=== PATIENT | female | born 1940 | race Caucasian/White ===

== ENCOUNTER 2016-10-16 07:45 | Inpatient (IN) | payer MEDICARE ==
[2016-10-16] VITALS (12 sets, daily range): BP systolic 117–129; BP diastolic 54–65; PULSE 63–91; RESP 12–17; O2SAT 93–97
[~2016-10-16] VITALS: Ht 162.6 cm; Wt 49.3 kg
[2016-10-16] MEDS: Lactated Ringer's 1,000 ML IV SCH ×4 (05:00→17:30)
[2016-10-16] MEDS: Vancomycin Inj 750 MG in 0.9% Sodium Chloride 250 ML IV SCH ×2 (06:00→08:30)
[~2016-10-16 07:45] MED LIST: ALBU8.5H2 INHALATION; Bupivacaine Liposome 1.3% 20 mL Inj INFILTRATE SCH; CeFAZolin Inj 2 GM in IV Premix 1 EACH IV SCH; ESTR1TAB24 PO; LATA2.5D6 AFFECT_EYE; LISI-571 PO; PRAM0.122 PO; SALM50DI IH; TRAZ-115 PO; Vancomycin Inj 1,000 MG in IV Premix 1 EACH IV SCH
--- NOTE | 2016-10-16 10:17 | PCM.HPANE ---
Patient Data Surgeon Admitting Provider: Attending Provider:Kavon Vazquez MD Primary Care Physician:Gabbie Quiñones DO Other Provider:Monica Morales Anesthesia Reason for Visit Right Knee Arthritis Ht/WT & BMI Height (Feet): 5 Height (Inches): 4.00 Weight (Kilograms): 49.300 Body Mass Index 18.00 Allergies Coded Allergies: Penicillins (Verified Allergy, Severe, RASH, 10/14/16) Past Anesthesia History Anesthesia History: Denies:: Anesthesia Reactions, Malignant Hyperthermia Diabetes History Hx Diabetes?: No MRSA MRSA: No Medications Hypertension Medication: Yes (LISINOPRIL) Home Meds Incl Beta Radha: No Reported Medications Latanoprost 2.5 Ml Drops1 Gtt AFFECT_EYE HS #1 BOTTLE BOTH EYES 10/14/16 Trazodone 50 Mg Ihwfmg74 Mg PO HS Ref 0 10/14/16 Salmeterol Xinafoate (Serevent Diskus)50 Mcg/Puff Inhaler1 Puff IH BID 10/14/16 Albuterol HFA (Proair HFA)8.5 Gm Hfa.aer.ad2 Puffs INHALATION Q4H PRN PRN #1 INHALER 10/14/16 Pramipexole Dihydrochloride (Mirapex)0.125 Mg Tablet0.125 Mg PO DAILY 10/14/16 Lisinopril 5 Mg Tablet5 Mg PO DAILY #30 TABLET Ref 0 10/14/16 Estradiol 1 Mg Tablet1 Mg PO DAILY Ref 0 10/14/16 History History of ENT Problems?: Yes HEENT History: Positive for:: Glaucoma Hx of Heart Problems?: Yes Cardiovascular History: Positive for:: Hypertension Denies:: Heart Murmur (STRESS ECHO 02/2015 EF 60-65%) Valvular Heart Disease Hx of Respiratory Problem?: Yes Respiratory History: Positive for:: Asthma Use of Inhalers / NEBS Denies:: Use of C-PAP Machine Hx Neurologic Problems?: Yes Hx of GI Problems?: No Hx of Problems?: No Female Hx: Denies:: Currently Skin History: Denies:: History Skin Disorders? Pressure Ulcers Hx Musculoskeletal Problems?: Yes Musculoskeletal History: Positive for:: Degenerative Joint Osteoarthritis (RT KNEE=CURRENT PROBLEM) Hx of Psycho/Social Problems?: No Hx Surgeries?: Yes (HYST) Hx Any Other Health Problems?: Yes Other History: Denies:: Cancer Endocrine Disease Hospitalization Thyroid Disease Hx Diabetes: No Have You Smoked inLast 12 mo: No Stop/Bang S-Snoring: Do You Snore Loudly: No T-Tired: feel tired, fatigued: Yes O-Obsered: Observed not breath: No P-Blood Pressure: treated: Yes B- Body Mass Index > 35 kg/m2: No A- Age over 50: Yes N- Neck Large Circumference: No G- Gender Male: No JULIO CESAR Total Score: 3 Risk Assessment Category Category 1A: Patient has history of documented sleep apnea, and HAS NOT received any narcotic, sedative or anesthesia administration during this stay. Category 1B: Patient has history of documented sleep apnea, and HAS received any narcotic , sedative or anesthesia administration during this stay Category 2: Patient has SUSPECTED Obstructive Sleep Apnea, and HAS received any narcotic , sedative or anesthesia administration during this stay. Category 3: Patient has SUSPECTED Obstructive Sleep Apnea and HAS NOT received narcotic, sedative or anesthesia administration during this stay. Category 4: Outpatient in Procedural Areas with known sleep apnea or who screen positive for High Risk via the STOP/BANG questionnaire. Exam Exam Vital Signs Vital Signs Date Time Temp Pulse Resp B/P Pulse Ox O2 Delivery O2 Flow Rate FiO2 10/16/16 08:02 35.8 63 12 117/58 95 Room Air General Appearance: Alert, Oriented X3, Cooperative, No Acute Distress HEENT/AIRWAY: MP 2 Lungs: Clear to Auscultation Heart: Exam Unremarkable Meds/Labs/Diagnostics Admission Meds Current Medications Lactated Ringer's 1,000 ml @ 120 mls/hr Q8H20M IV Last administered on 07:56; Start 10/16/16 at 05:00; Stop 10/16/16 at 13:19 Vancomycin HCl/ Sodium Chloride (Vancocin Inj/ Normal Saline) 250 ml @ 166.667 mls/hr PREOP IV Last administered on 10/16/16 08:30; Start 10/16/16 at 06:00; Stop 10/16/16 at 19:00 Plan Impression Patient chart reviewed, patient interviewed and anesthestic plan with risks, benefits, and alternatives discussed, and informed consent obtained. NPO Status: 10/16/16 [facility] 0545 ASA Physical Status: ASA2 Mod Systemic Disease Anesthetic Plan: GA, Regional Block (If TKA) Bene/Risks/Altern/Consents: Yes HP Complete Prior to Induction: Yes Kaden Uribe MD Oct 16, 2016 08:41
[2016-10-16] MEDS ORDERED: Lactated Ringer's 1,000 ML IV SCH (11:29)
[2016-10-16] MEDS ORDERED: Lactated Ringer's 500 ML IV PRN (11:29)
[2016-10-16] MEDS ORDERED: fentaNYL-PF 50 mCg/mL 2 mL Inj IVPUSH PRN (11:30)
[2016-10-16] MEDS: Tranexamic Acid 100 mg/mL 10 mL Inj ONE ×2 (11:30→12:30)
[2016-10-16] MEDS ORDERED: Dexamethasone 4 mg/mL Inj IVPUSH PRN (11:30)
[2016-10-16] MEDS ORDERED: HYDROmorphone 1 mg/mL Inj IVPUSH PRN (11:30)
[2016-10-16] MEDS ORDERED: Phenylephrine 10,000 mCg/mL Inj IVPUSH PRN (11:30)
[2016-10-16] MEDS ORDERED: MetoCLOpramide 5 mg/mL 2 mL Inj IVPUSH PRN ×2 (11:30→17:10)
[2016-10-16] MEDS ORDERED: EPHEDrine Sulfate 50 mg/mL Inj IVPUSH PRN (11:30)
[2016-10-16] MEDS ORDERED: Ondansetron 2 mg/mL 2 mL Inj IVPUSH PRN ×2 (11:30→17:10)
[2016-10-16] MEDS ORDERED: Bupivacaine-MPF 0.25%/EPI 30 mL Inj ARTICULAR ONE (11:49)
[2016-10-16] MEDS ORDERED: Gentamicin 40 mg/mL 2 mL Inj IRRIGATION ONE ×2 (11:50→11:57)
[2016-10-16] MEDS ORDERED: Lactated Ringer's 1,000 ML IV ONE (12:36)
--- NOTE | 2016-10-16 14:04 | PCM.ANEP2 ---
Post Anesthesia Evaluation ASA/CMS Post Anesthesia VS in Patient's Normal Range?: Yes Resp Stable; Airway Patent?: Yes CV Function & Hydration Stable: Yes Mental Status Recovered?: Yes Pain control Satisfactory?: Yes N/V Control Satisfactory?: Yes Kaden Uribe MD Oct 16, 2016 14:04
--- NOTE | 2016-10-16 14:04 | PCM.ANEP1 ---
Post Anesthesia Phase 1 PACU Phase 1 Assessment Vital Signs Vital Signs Date Time Temp Pulse Resp B/P Pulse Ox O2 Delivery O2 Flow Rate FiO2 10/16/16 13:30 36.1 86 15 118/57 94 Room Air 10/16/16 13:25 87 16 125/56 95 Room Air 10/16/16 13:20 88 16 126/58 95 Room Air 10/16/16 13:15 88 13 127/62 96 Room Air 10/16/16 13:10 91 15 127/59 97 Room Air 10/16/16 13:07 36.1 89 14 122/59 97 Room Air 10/16/16 08:02 35.8 63 12 117/58 95 Room Air Anesthetic Administered: GA Level of Alertness: Sleepy, easy to arouse SIMS's with Equal Strength: Yes Pain: No Nausea or Vomiting: No Oxygen Delivery: Room Air Lungs: Clear to Auscultation Dermatome Level: Full Sensation Summary FNB in PACU tolerated well Kaden Uribe MD Oct 16, 2016 14:04
[2016-10-16] MEDS ORDERED: Ondansetron 2 mg/mL 2 mL Inj ONE (14:19)
[2016-10-16] MEDS ORDERED: fentaNYL-PF 50 mCg/mL 2 mL Inj ONE (14:19)
[2016-10-16] MEDS ORDERED: EPHEDrine/NS 5 mg/mL 5 mL Syringe ONE (14:19)
[2016-10-16] MEDS ORDERED: Dexamethasone 4 mg/mL Inj ONE (14:19)
[2016-10-16] MEDS ORDERED: Propofol 10,000 mCg/mL 20 mL Inj ONE (14:19)
--- NOTE | 2016-10-16 14:23 | DRSVH ---
PROCEDURE: X-RAY RIGHT KNEE, ONE OR TWO VIEWS ([id number]) INDICATIONS: CHECK ALIGNMENT TECHNIQUE: 2 views of the knee were acquired. COMPARISON: None. FINDINGS: Bones: There is right knee arthroplasty with prosthesis in anatomic alignment. No suspicious bony le sions. Soft tissues: Postsurgical changes around R. noted including a surgical drain. IMPRESSION: Expected postsurgical changes for the total knee arthroplasty. Dictated by: Carmen Longo M.D. on 10/16/2016 at 14:21 Approved by: Carmen Longo M.D. on 10/16/2016 at 14:21
--- NOTE | 2016-10-16 15:01 | OP ---
[address] [address] OPERATIVE REPORT PATIENT: KAMALA COOK : 1940 MR#: [id number] ADMIT: 10/16/2016 JOB ID: [id number] DATE OF SURGERY: 10/16/2016 PREOPERATIVE DIAGNOSIS(ES): Advanced medial compartment osteoarthritis of the knee. POSTOPERATIVE DIAGNOSIS(ES): Bicompartment arthritic changes. PROCEDURE: Total knee replacement. SURGEON: Kavon Vazquez MD PLUG SORTER: Wyatt Sanchez (daycare assistant required due to the major complexity of the operation). INDICATIONS: This woman has had persistent disability unresponsive to conservative treatment. She elects for a knee arthroplasty. She had a preference for partial knee replacement and we performed a diagnostic arthroscopy to assess the lateral side which had a complex meniscal tear and moderate degenerative changes prompting the decision to proceed with a total knee replacement. DESCRIPTION OF PROCEDURE: The knee was prepped and draped in the usual sterile fashion. A diagnostic arthroscopy carried out through an anteromedial portal with the above-mentioned findings. The decision was made to proceed with a total knee replacement. The arthroscope was removed from the knee. Advanced arthritis had been encountered on the medial side. Wounds were irrigated with sterile irrigant. An anteromedial approach was made to the knee. The patella was subluxed laterally, cut transversely, sized to a 32 and the patellar protection plate was utilized. Drill hole was placed in the distal femur. A 5 degree valgus distal femoral cut was made. The femur was sized to a C femoral block fixed in appropriate position. Rotation and chamfer cuts were made. Trial was placed and lug holes were drilled. A 6 was chosen. The tibia was cut with the extramedullary tool and the bone fragments were removed. This was sized to a D chamfer cutting guide. All meniscal tissue and osteophytes removed from the knee. The PCL had been preserved. Trial reductions performed and a 10 mm polyethylene produced excellent tracking, soft tissue tension with excellent patellar tracking. Pressurized lavage was followed by pressurized cementation components. Excess cement was removed during the curing process and the final construct was assembled. Deep Hemovac drain was left. Deep closure with number #2 Quill deep followed by 2-0 Vicryl, 3-0, and a 4-0 intracuticular stitch. The patient tolerated the procedure well. There were no complications.
--- NOTE | 2016-10-16 15:21 | NUR ---
ADMIT Patient arrived to room 1005 on hospital bed. Alert and oriented, answering questions appropriately. Rates pain to R knee 6/10. Ice pack in place with ventura wrap dressing. Hemavac to R knee clamped, due to be unclamped at 1800. Able to wiggle toes and sensation present to R foot. R femoral block done in PACU. No garcia in place. Gave patient hot tea and ice water. No complaints of nausea. Iv fluids running. Will continue to monitor.
[2016-10-16] MEDS ORDERED: HYDROcodone-APAP 5-325 mg Tablet PO PRN (17:05)
[2016-10-16] MEDS ORDERED: hydrOXYzine Inj 25 MG/1 mL SDV IM PRN (17:15)
[2016-10-16] MEDS ORDERED: hydrOXYzine Pamoate 25 mg Capsule PO PRN (17:15)
[2016-10-16] MEDS ORDERED: Magnesium Hydroxide 10 mL Oral Concentration PO PRN (17:15)
[2016-10-16] MEDS ORDERED: Sodium Biphos-Phos 133 mL Enema RECTAL PRN (17:20)
[2016-10-16] MEDS: Ketorolac 15 mg/mL Inj IVPUSH SCH ×2 (17:39→23:15)
[2016-10-16] MEDS: CeFAZolin Inj 2 GM in IV Premix 1 EACH IV SCH (19:30)
[2016-10-16] MEDS ORDERED: Vancomycin Inj 750 MG in 0.9% Sodium Chloride 250 ML IV ONE (20:30)
[2016-10-17 00:10] VITALS: BP 118/62; PULSE 81; RESP 17; O2SAT 95
[2016-10-17] MEDS: Lactated Ringer's 1,000 ML IV SCH (01:01)
[2016-10-17] MEDS: CeFAZolin Inj 2 GM in IV Premix 1 EACH IV SCH (04:08)
--- NOTE | 2016-10-17 05:08 | NUR ---
Activity Patient up to bed side commode with 2 person max assist. Noted reluctance to request assistance, patient stated that her dressing had gotten "Bunched up and she did not want to bother us." This RN encouraged her to use call light, but also increased intentional rounding. Patient denies CP, SOB, and abdominal discomfort at this time.
[2016-10-17] MEDS: Ketorolac 15 mg/mL Inj IVPUSH SCH (05:37)
[2016-10-17 05:43] LABS: BASOPHILS % (AUTO) 0 % (0-3); EOSINOPHILS % (AUTO) 0 % (0-5); MONOCYTES % (AUTO) 8.8 % (4-12); Mean Corpuscular Hemoglobin 30.5 pg (27.0-35.0); NEUTROPHILS % (AUTO) 78.7 % (40-74); Platelet Count 115 bil/L (150-400)
[2016-10-17 05:55] VITALS: BP 142/61; PULSE 64; RESP 17; O2SAT 97
--- NOTE | 2016-10-17 07:09 | PCM.PNORTH ---
Subjective Date of Service: Oct 17, 2016 Visit Information: Reason for Visit Right Knee Arthritis Surgery/Surgery Date Post-Op Day # Date of Admission: Oct 16, 2016 at 14:18 Hospital Day # Subjective Found patient awake and alert this morning and sitting up in bed. No complaints pain at this time. Discussed participation with formal physical therapy and planned discharge on or before postop day #3. Patient states that she does have help at home and that she has one step to enter her home and 16 steps inside her home to get to her bedroom. She also relates that she can stay on the ground floor and initially and this is what she plans to do. Postop General: No Complaints, No Shortness of Breath, No Chest Pain Pain Management: PO, IV Push Objective Exam Objective Orientation: Alert and oriented 3 and pleasant. Some difficulty in focusing during discussion. Dressing: Interoperative dressing is clean dry and intact. Wound: Wound is not observed today. Compartments: Calf and thigh are soft and nontender. Mobility/sensation: Toe wiggle and sensation are intact at right lower extremity distally. KANNAN hose: None Reese: None Drain: Drain is in place and working. 180 mL output since surgery Gait: No gait as of this time with PT. Patient is using B SC Vital Signs and I/O Vital Sign - Last Date Time Temp Pulse Resp B/P Pulse Ox O2 Delivery O2 Flow Rate FiO2 10/17/16 05:55 36.4 64 17 142/61 97 Room Air Intake and Output 10/16/16 10/16/16 10/17/16 Cumulative From/Thru 15:00 23:00 07:00 10/14/16 08:53 - 10/17/16 05:55 Intake Total 1700 ml 268 ml 1156 ml 3124 ml Output Total 1780 ml 1780 ml Balance 1700 ml 268 ml -624 ml 1344 ml Intake Oral 1156 ml 1156 ml IV Total 1700 ml 268 ml 1968 ml Output Urine Total 1600 ml 1600 ml Drainage Total 180 ml 180 ml Lab & Micro Results Laboratory Tests Test 10/17/16 05:15 White Blood Count 9.5th/mm3 (3.8-10.1) Red Blood Count 4.17mil/mm3 (3.90-5.20) Hemoglobin 12.7g/dL (12.0-15.6) Hematocrit 37.1% (35.0-46.0) Mean Corpuscular Volume 89.0fL (81-100) Mean Corpuscular Hemoglobin 30.5pg (27.0-35.0) Mean Corpuscular Hemoglobin Concent 34.2% (32.0-37.0) Red Cell Distribution Width 12.4% (12.3-15.4) Platelet Count 115bil/L (150-400) Neutrophils (%) (Auto) 78.7% (40-74) Lymphocytes (%) (Auto) 12.4% (14-46) Monocytes (%) (Auto) 8.8% (4-12) Eosinophils (%) (Auto) 0% (0-5) Basophils (%) (Auto) 0% (0-3) Result Diagram: 10/17/16 0515 General Appearance: Alert, Oriented X3, Cooperative, No Acute Distress Extremities: No Compartment Syndrom Noted, Thigh & Calf Soft/Nontender Postop Sensory Motor: Distal Motor Intact, Movement in Toes, Distal Sensation Intact SURGICAL WOUND : Drain Location Body Site: Knee Wound Drainage Type: Hemovac Activity: Activity per PT, Ambulate with PT (weightbearing as tolerated on the right lower extremity using a front-wheeled walker.) Catheters: None Assessment & Plan Impression Patient is a 76-year-old female who is alert and pleasant and is undergone a right total knee arthroplasty on 10/16/2016. We have discussed participation of formal therapy and I have encouraged this. We have discussed discharged tomorrow for postop day #3. Patient has attended the preoperative joint class and does have help at home. Problems: Plan Postop day # 1 from right total knee arthroplasty performed on 10/16/[address] Kavon Vazquez. Weight bearing status: Weightbearing as tolerated on the right lower extremity Mobility aid: Front-wheeled walker Immobilization: None Precautions: Standard postoperative precautions for mobility, gait and safety. Physical therapy: Continue formal physical therapy for mobility, gait and safety. Patient states she has one step to enter home and 16 steps to reach the main floor. She says there is a bedroom on the entry floor and she plans to stay in that location until she is safe to reach her bedroom. Patient has arranged outpatient physical therapy to begin postdischarge as soon as possible. Pain control: Maintain pain control with by mouth pain medications starting today on postop day 1. Use Percocet 5/325 and Vistaril. Supplement with Roxicodone as needed initially. DVT prophylaxis: ASA 81 mg EC by mouth twice a day 6 weeks postop for DVT prophylaxis Wound care: Keep surgical incision clean dry and covered until seen in office in 2 weeks. Incision may be showered after postop day #4 if wound has been dry for 24 hours. Reese: Absent Dressing: Intraoperative dressing is clean dry and intact. Interoperative dressing will be changed postoperative dressing on postoperative day #2 Drain: In place and working. 180 mL output since surgery as of 10/17/2016 at 0630 hrs. KANNAN hose: None. Bilateral thigh-high KANNAN hose will be ordered today. Left should be applied today and right may be applied on postop day 2 after dressing change. Nursing communication: Nursing please measure for an split bilateral thigh-high KANNAN hose with left applied today and right applied on postop day #2 after dressing change. Nursing please discontinue intraoperative drain at 24 hours postop around noon today on postop day #1. 2-week follow-up: Follow-up in 2 weeks at [facility] orthopedic clinic on prearranged appointment with mid-level provider for wound check and suture removal. 6-week follow-up: Follow-up in 2 weeks at [facility] orthopedic clinic on prearranged appointment with Dr. Kavon Vazquez with 2 view right knee x- rays on arrival . Plan: Anticipate the patient will participate well with formal physical therapy and we will discharge on a referral postop day #3 to home with family as caregivers. Discharge instructions: Weightbearing as tolerated on the right lower extremity using front-wheeled walker. Keep incision clean dry and covered until seen in office in 2 weeks. Wound may be showered after postop day #4 if it has been dry for 24 hours. Work on range of motion at the knee. Discharge plan: Anticipated discharge on or before postop day #3 to home with family as caregivers. VTE Prophylaxis: SCDs (SCD and left lower extremity), KANNAN Hose (bilateral thigh -high KANNNA hose), Other (ASA 81 mg EC by mouth twice a day 6 weeks postop for DVT prophylaxis.) Lenin Devlin PA-C Oct 17, 2016 07:09
[2016-10-17 09:00] VITALS: BP 120/65; PULSE 66; RESP 16; O2SAT 96
[2016-10-17 11:12] VITALS: BP 109/55; PULSE 73; RESP 16; O2SAT 98
[2016-10-17] MEDS: diphenhydrAMINE 25 mg Capsule PO PRN ×2 (12:19→19:55)
[2016-10-17] MEDS: oxyCODONE-Acetamin 5-325 mg Tablet PO PRN ×2 (12:19→19:55)
[2016-10-17 16:05] VITALS: BP 110/55; PULSE 69; RESP 16; O2SAT 98
--- NOTE | 2016-10-17 16:06 | NUR ---
ACTIVITY Patient got up to use BSC with minimal assistance using FWW. Thigh high KANNAN hose applied to left leg. Pain has been well controlled with 1 tab norco prior to therapy sessions. Even 3.5 hrs since pain med administration patient still states pain is a 1-2/10, which is tolerable for her. Encouraged patient to use call light to let us know when pain increases at all. care continues
[2016-10-17 20:08] VITALS: BP 131/64; PULSE 87; RESP 20; O2SAT 94
[2016-10-18] VITALS: BP 134/61; PULSE 74; RESP 20; O2SAT 96
--- NOTE | 2016-10-18 01:04 | NUR ---
Hemovac Per MANAGER PROJECT, patient turned to sit up on side of bed and hemovac became dislodge at collection container site. Susannah, RN assisted with connecting new hemovac container . VSS. Call light within reach. Care continues.
[2016-10-18] MEDS: Lactated Ringer's 1,000 ML IV SCH ×2 (01:11→19:00)
[2016-10-18 05:20] VITALS: BP 144/67; PULSE 79; RESP 20; O2SAT 95
[2016-10-18] MEDS: diphenhydrAMINE 25 mg Capsule PO PRN (05:38)
[2016-10-18] MEDS: oxyCODONE-Acetamin 5-325 mg Tablet PO PRN ×5 (05:38→23:02)
[2016-10-18 09:50] VITALS: BP 144/68; PULSE 68; RESP 18; O2SAT 96
--- NOTE | 2016-10-18 10:40 | PROG NOTE ---
[address] [address] PROGRESS NOTE PATIENT: KAMALA COOK : 1940 MR#: [id number] ADMIT: 10/16/2016 JOB ID: [id number] DATE: 10/18/2016 HISTORY AND HOSPITAL COURSE: The patient is postoperative day number two. She is having more pain and more difficulty getting around today. I suspect that is because the block has worn off. Hemovac came apart last evening. It needs to be discontinued today. Will do a dressing change today. Her leg looks excellent, very little swelling, and she has a normal distal neurovascular exam. IMPRESSION: Satisfactory progress. Patient will likely benefit from an additional day in the hospital. Plan on probable discharge tomorrow, unless she improved significantly and excels in physical therapy this afternoon.
--- NOTE | 2016-10-18 15:38 | NUR ---
Social work note Initial assessment Kayleigh Petit is a 76 yr old admitted for RT knee replacement. EMR reviewed: Pt lives in [place] with her significant other/DPOA Quirino Acosta. Pt has Medicare and AARP insurance. No LTC insurance, no VA benefits. Her PCP is Dr Quiñones. Darrionmit score is 1. See attached CM initial assessment. FAMILY ASSISTANT met with pt - Introduced D/C planning and explained SW role. Pt is independent at baseline. She has a walker to use while she recovers from surgery and states that she has friends/family to provide assist. She denies any other needs. Plans to d/c home tomorrow. Plan: Home with Helene tomorrow in [facility]. Outpt PT already established for rehab. RUI Brown Addendum: 10/18/16 at 1541 by HESHAM CA SS Amended: Links added.
--- NOTE | 2016-10-18 19:23 | NUR ---
Activity/pain Pt up 1 assist to bathroom, walked in yepez with PT Pain well controlled with PO Percocet. Hemovac d/c'd and dressing changed to island dressing.
[2016-10-18 21:16] VITALS: BP 134/64; PULSE 75; RESP 18; O2SAT 97
--- NOTE | 2016-10-18 23:08 | NUR ---
Pain/Activity Patient complaining of pain 4-5/10 on pain scale. Percocet 1 tab administered. Patient experiencing some insomnia because of pain. Ice bag put on right knee. Patient ambulating well with fww to br. VSS. Call light within reach. Care continues.
[2016-10-19 05:17] VITALS: BP 142/72; PULSE 72; RESP 20; O2SAT 97
[2016-10-19] MEDS: oxyCODONE-Acetamin 5-325 mg Tablet PO PRN ×2 (09:20→13:18)
--- NOTE | 2016-10-19 09:33 | PCM.PNORTH ---
Subjective Date of Service: Oct 19, 2016 Visit Information: Reason for Visit Right Knee Arthritis Surgery/Surgery Date right total knee arthroplasty 10/16/2016 Post-Op Day # 3 Date of Admission: Oct 16, 2016 at 14:18 Hospital Day # Subjective Patient did quite well with therapy yesterday and angulated 125 feet. Plans to practice stairs with therapy this morning. She had a little behind with her pain medicine last night. She complains of incisional pain. Her is here this morning is well. She feels that she will be ready for discharge today. Postop General: No Shortness of Breath, No Chest Pain Pain Management: PO Objective Exam Objective Patient is seen ambulating out of the bathroom and then sits on the bed independently with her walker. Her is at bedside. Vital Signs and I/O Vital Sign - Last Date Time Temp Pulse Resp B/P Pulse Ox O2 Delivery O2 Flow Rate FiO2 10/19/16 05:17 36.5 72 20 142/72 97 Room Air Intake and Output 10/18/16 10/18/16 10/19/16 Cumulative From/Thru 14:59 22:59 06:59 10/14/16 08:53 - 10/19/16 06:33 Intake Total 800 ml 513 ml 5975 ml Output Total 450 ml 450 ml 5690 ml Balance 350 ml 63 ml 285 ml Intake Oral 800 ml 513 ml 3639 ml IV Total 2336 ml Output Urine Total 450 ml 450 ml 5250 ml Drainage Total 440 ml # Voids 3 1 4 # Bowel Movements 0 0 Result Diagram: 10/17/16 0515 General Appearance: Alert, Oriented X3, Cooperative, No Acute Distress Extremities: Distal Pulses Palpable, No Compartment Syndrom Noted, Thigh & Calf Soft/Nontender Postop Sensory Motor: Distal Motor Intact, NVI Distally SURGICAL WOUND : Wound Location/Description Right knee: Dressing is clean dry and intact. There is no signs of infection. Thigh-high KANNAN hose in place. A soft and nontender. Dressing & Drainage Status: Intact Activity: Activity per PT, Ambulate with PT (weightbearing as tolerated on the right lower extremity using a front-wheeled walker.) Catheters: None Assessment & Plan Impression Status post right total knee arthroplasty Problems: Plan Weightbearing: Weightbearing as tolerated with walker DVT prophylaxis: aspirin 81 mg twice a day 6 weeks Physical therapy for transfers, progressive ambulation, therapeutic exercise Wound care: Patient may remove dressing tomorrow and shower. Apply new dressing after showering. Wear compression stockings for 1 month on the surgical leg The patient may shower if the wound has no drainage present x 24 hours. Wound may be uncovered to shower. Let soap and water run over the wound, pat dry and apply a new dressing. Discharge plan: Discharge home today. Start outpatient physical therapy later this week Discharge instructions are reviewed with the patient Follow-up plan: In 2 weeks at [facility] with MONTRELL for wound check and at [address] Vazquez with x-rays Pain Management: Percocet, Vistaril VTE Prophylaxis: SCDs, KANNAN Hose, Other (ASA 81 mg twice a day) Resuscitation Status: CPR: Attempt Resuscitation FreerKati Will PA-C Oct 19, 2016 09:33
--- NOTE | 2016-10-19 09:34 | PCM.DIORTH ---
Ortho Discharge Instruction Date of Service: Oct 19, 2016 Dates of Hospitalization Date of Hospital Admission Oct 16, 2016 at 14:18 Providers Admitting Physician: Kavon Vazquez MD Primary Care Physician: Gabbie Quiñones DO Attending Physician: Kavon Vazquez MD Diet Discharge Diet: No restrictions Activity Discharge Activity-General: Balance rest and activity, Elevate & ice extremity , May drive in (one month) Right Lower Extremity: Weight Bearing as tolerated Discharge Assist Device: Front Wheeled Walker Dressing and Incisional Care Discharge Dressing Care: Keep dressing clean, dry & intact Discharge Hygiene: May shower (see instructions below), DO NOT soak incision under water, NO bathtub, hot tub or whirlpool Additional Instructions Discharge Instructions Weightbearing: Weightbearing as tolerated with walker DVT prophylaxis: aspirin 81 mg twice a day 6 weeks Wound care: May remove dressing tomorrow and shower. Apply new dressing after showering. Wear compression stockings for 1 month nonsurgical leg Increase activity a little more each day. Push yourself with bending and straightening the knee. Do not place a pillow under the knee when resting. Placed pillow under the calf or foot to help straighten the knee. Start outpatient physical therapy later this week. The patient may shower if the wound has no drainage present x 24 hours. Wound may be uncovered to shower. Let soap and water run over the wound, pat dry and apply a new dressing. Follow Up Plan Follow Up Plan Follow-up plan: In 2 weeks at [facility] with MONTRELL for wound check and at [address] Vazquez with x-rays Call your provider for: Fever, Chills, Shortness of breath, Vomitting, Drainage at incision, Wound redness Kati Fairchild PA-C Oct 19, 2016 09:34
--- NOTE | 2016-10-19 09:59 | PCM.DC.ORT ---
Discharge Summary Date of Service: Oct 19, 2016 Date of Hospital Admission: Oct 16, 2016 at 14:18 Date of Surgery: Oct 16, 2016 Date of Discharge: Oct 19, 2016 Reason for Hospitalization: Right knee arthritis Procedures Performed: Right total knee arthroplasty Hospital Course: The patient was admitted to the hospital on 10/16/2016 and underwent the above procedure. Antibiotic prophylaxis consisting of Ancef and vancomycin. The surgeon was Dr. Vazquez. A Reese was placed perioperatively. Patient tolerated the procedure well and was transferred to recovery room in stable condition. Reese was discontinued on postop day 1. Patient had physical therapy to work on ambulation and transfers. Weightbearing: as tolerated with walker. Pain was managed with morphine, Percocet, Vistaril and [place]ml[place]. Drain is discontinued on postop day 2. DVT prophylaxis: Aspirin 81 mg twice a day. Patient progressed well with physical therapy was able to ambulate 125 feet and do stairs. On POD-3 she was discharged home with her to assist in her care. Follow-up: at [facility] 2 weeks postop for wound check and at [address] Vazquez with x-ray Diagnosis at Time of Discharge Status post right total knee arthroplasty Problems: Disposition: Discharged home in stable condition Discharge Instructions: Weightbearing: Weightbearing as tolerated with walker DVT prophylaxis: aspirin 81 mg twice a day 6 weeks Wound care: May remove dressing tomorrow and shower. Apply new dressing after showering. Wear compression stockings for 1 month nonsurgical leg Increase activity a little more each day. Push yourself with bending and straightening the knee. Do not place a pillow under the knee when resting. Placed pillow under the calf or foot to help straighten the knee. Start outpatient physical therapy later this week. The patient may shower if the wound has no drainage present x 24 hours. Wound may be uncovered to shower. Let soap and water run over the wound, pat dry and apply a new dressing. Albuterol HFA (Proair HFA) 8.5 Gm Hfa.aer.ad 2 PUFFS INHALATION Q4H PRN PRN PRN Estradiol (Estradiol) 1 Mg Tablet 1 MG PO DAILY Latanoprost (Latanoprost) 2.5 Ml Drops 1 GTT AFFECT_EYE HS BOTH EYES Lisinopril (Lisinopril) 5 Mg Tablet 5 MG PO DAILY Pramipexole Dihydrochloride (Mirapex) 0.125 Mg Tablet 0.125 MG PO DAILY Salmeterol Xinafoate (Serevent Diskus) 50 Mcg/Puff Inhaler 1 PUFF IH BID Trazodone (Trazodone) 50 Mg Tablet 50 MG PO Kati Fairchild PA-C Oct 19, 2016 09:59
[2016-10-19] MEDS ORDERED: ASPI81TA3 PO (10:03)
[2016-10-19] MEDS ORDERED: OXYC1TAB24 PO (10:03)
[2016-10-19] MEDS ORDERED: HYDR-3797 PO (10:03)
[2016-10-19] MEDS ORDERED: DOCU-41 PO (10:03)
[2016-10-19 10:15] VITALS: BP 142/73; PULSE 79; RESP 18; O2SAT 95
[2016-10-19] MEDS: Lactated Ringer's 1,000 ML IV SCH (11:40)
--- NOTE | 2016-10-19 11:47 | NUR ---
Social Work Note: Discharge Data& Assessment: Per pt is medically ready to discharge home. SW met with pt at bedside to confirm discharge plan and assess for any unmet needs. Kayleigh Petit is a 76 year old female admitted on 10/16/2016 for right knee arthritis. Per pt is medically improved and ready to discharge home. PT has cleared pt to discharge home with outpt PT. Pt confirmed that she already has an outpt PT appointment scheduled. Pt confirmed her deneenancee is coming to transport her home today. Pt denies any other needs. No other discharge needs identified. Plan: Per pt is medically improved and ready to discharge home via POV. Pt denies any other needs. No other discharge needs identified. JIMENA Ornelas
--- NOTE | 2016-10-19 13:55 | NUR ---
Discharge Patient discharged home with spouse. Patient given scripts for pain Meds and these were reviewed with patient. Patient was given verbal and written discharge instructions and agreed to understanding them. Patients home meds retrieved from pharmacy and given back to patient in sealed envelope in which they were taken to pharmacy. Patient has follow up appointments already scheduled.
== END 2016-10-19 13:45 | disposition home or self-care (01) | DRG 470 ==
LOC: SAS 07:45 → OSC 14:18
PROVIDERS: ADMIT Orthopaedic Surgery; ATTEND Orthopaedic Surgery
PROC: 0SRC0J9 Replacement of Right Knee Joint with Synthetic Substitute, Cemented, Open Approach (ICD-10-PCS; principal; 2016-10-16 10:00)
DX: M17.11 Unilateral primary osteoarthritis, right knee (principal); I10 Essential (primary) hypertension; J45.909 Unspecified asthma, uncomplicated